=== PATIENT | female | born 2005 | race African-American/Black ===

== ENCOUNTER 2023-06-10 20:25 | Emergency (ER) | payer OTHER ==
[~2023-06-10] VITALS: Ht 167.6 cm; Wt 69.0 kg
[2023-06-10 20:34] VITALS: BP 106/51; O2SAT 99
[2023-06-10 21:13] LABS: CLARITY URINE CLEAR (CLEAR); COLOR URINE YELLOW (YELLOW); GLUCOSE URINE NEGATIVE (NEGATIVE); KETONES URINE NEGATIVE (NEGATIVE); LEUKOCYTE ESTERASE URINE 1+ (NEGATIVE); NITRITE URINE NEGATIVE (NEGATIVE); OCCULT BLOOD URINE NEGATIVE (NEGATIVE); PROTEIN URINE NEGATIVE (NEGATIVE); SPECIFIC GRAVITY URINE 1.022 (1.005-1.030)
[2023-06-10 21:14] LABS: YEAST URINE NONE SEEN
[2023-06-10] MEDS ORDERED: P20 MT (21:22)
[2023-06-10] MEDS ORDERED: PREDNISONE 20MG TABLET PO ONE (21:30)
[2023-06-10 21:47] VITALS: PULSE 84; RESP 16; TEMP 98.9
[2023-06-10 21:48] LABS: BACTERIA URINE 2+; RBC URINE 0-2 /hpf (0-2); SQUAMOUS EPITHELIAL CELL URINE FEW /lpf (RARE/1+)
== END 2023-06-10 22:30 | disposition home or self-care (01) ==
LOC: ER 20:25
DX: L23.9 Allergic contact dermatitis, unspecified cause (principal)
CPT/HCPCS: 99283; 81003; 81025; J7512